=== PATIENT | female | born 1985 | race Caucasian/White ===

== ENCOUNTER → 2019-12-25 | Outpatient (CLI) | payer SELFPAY ==
[2019-12-25 14:22] LABS: HEMATOCRIT 42.7 % (37.0-47.0); HEMOGLOBIN 13.8 g/dL (12.5-16.0); MEAN CELL VOLUME 92 fl (78-100); MEAN CORPUSCULAR HEMOGLOBIN 30 pg (27-31); MEAN CORPUSCULAR HGB CONC 32 g/dL (33-37); MEAN PLATELET VOLUME 9.3 fl (7.4-10.4); PLATELET COUNT 351 K/mm3 (130-400); RED BLOOD COUNT 4.62 M/mm3 (4.10-5.30); RED CELL DISTRIBUTION WIDTH 13.3 % (11.5-14.5); WHITE BLOOD COUNT 6.9 K/mm3 (4.8-10.8)
[2019-12-25 14:28] LABS: ALBUMIN 3.4 g/dL (3.5-5.0); POTASSIUM 3.8 mmol/L (3.5-5.1)
[2019-12-25 14:29] LABS: CALCIUM 8.2 mg/dL (8.3-10.5)
[2019-12-25 14:30] LABS: TOTAL PROTEIN 6.1 g/dL (6.4-8.3)
[2019-12-25 14:32] LABS: TOTAL BILIRUBIN 0.3 mg/dL (0.2-1.2)
[2019-12-25 14:50] LABS: LYMPHOCYTE 24 % (20-51); MONOCYTE 9 % (3-10); NEUTROPHILS 66 % (42-75)
== END ==
LOC: LAB 13:54
PROVIDERS: Physician Assistant
DX: R42 Dizziness and giddiness (principal); R55 Syncope and collapse; R11.0 Nausea